=== PATIENT | male | born 1975 | race Caucasian/White ===

== ENCOUNTER 2021-03-22 21:23 | Emergency (ER) | payer BC ==
[~2021-03-22] VITALS: Ht 167.6 cm; Wt 141.1 kg
[2021-03-22] MEDS ORDERED: IBUPROFEN 800 MG TAB PO ONE (22:00)
[2021-03-22] MEDS ORDERED: ACETAMINOPHEN 500 MG TABLET PO ONE (22:00)
[2021-03-22] MEDS ORDERED: 0.9%NACL 1000ML 1,000 ML IV ONE (22:00)
[2021-03-22 22:21] LABS: BASOPHILS % (AUTO) 0.2 % (0.0-5.0); EOSINOPHILS % (AUTO) 1.5 % (0.0-8.0); HEMATOCRIT 41.4 % (42-54); LYMPHOCYTES % (AUTO) 10.3 % (21.0-51.0); MEAN CORPUSCULAR HEMOGLOBIN 31.3 pg (27.0-33.0); MEAN CORPUSCULAR VOLUME 89.2 fL (79-99); MONOCYTES % (AUTO) 9.9 % (3.0-13.0); NEUTROPHILS % (AUTO) 77.6 % (40.0-77.0); PLATELET COUNT (AUTO) 284 K/uL (130-400); RED BLOOD CELL COUNT(AUTO) 4.64 MIL/uL (4.50-6.20); RED CELL DISTRIBUTION WIDTH 12.2 % (11.0-15.5); WHITE BLOOD COUNT (AUTO) 17.6 K/uL (4.8-10.8)
[2021-03-22 22:23] LABS: APPEARANCE,URINE Cloudy (CLEAR); BILIRUBIN,URINE Negative (NEGATIVE); COLOR,URINE Dark Yellow (YELLOW); GLUCOSE, URINE (UA) Negative (NEGATIVE); KETONES,URINE Negative (NEGATIVE); LEUKOCYTE ESTERASE ,URINE Moderate (NEGATIVE); NITRATE,URINE Negative (NEGATIVE); OCCULT BLOOD,URINE Moderate (NEGATIVE); PH,URINE 5.5 (5.0-8.0); PROTEIN,URINE POS 1+ mg/dL (NEGATIVE)
[2021-03-22 22:35] LABS: POTASSIUM 3.1 mmol/L (3.5-5.1)
[2021-03-22 22:39] LABS: ALBUMIN 3.3 g/dL (3.5-5.0); BILIRUBIN,TOTAL 0.8 mg/dL (0.2-1.0); CRP QUANTITATIVE 47.8 mg/L (0.00-9.0); TOTAL PROTEIN, SERUM 7.5 g/dL (6.0-8.3)
[2021-03-22 22:45] LABS: BACTERIA,URINE Rare /HPF (None Seen); SQUAMOUS EPITHELIAL CELL,UR Few /HPF (0-2)
[2021-03-22] MEDS ORDERED: POTASSIUM BICARB/CIT AC 25 MEQ TABLET.EFF ONE (22:45)
[2021-03-22] MEDS ORDERED: CEFTRIAXONE 1G VIAL ONE (22:45)
[2021-03-22] MEDS ORDERED: POTASSIUM BICARB/CIT AC 25 MEQ TABLET.EFF PO ONE (23:00)
[2021-03-22] MEDS ORDERED: CEFTRIAXONE 1G VIAL IVP ONE (23:00)
[2021-03-22] MEDS ORDERED: CEPH500B PO (23:28)
[2021-03-22 23:55] VITALS: BP 119/82
== END 2021-03-22 23:58 | disposition home or self-care (01) ==
LOC: EDH 21:23
DX: N39.0 Urinary tract infection, site not specified (principal); E86.0 Dehydration; Z20.822 Contact with and (suspected) exposure to COVID-19; R73.9 Hyperglycemia, unspecified; E66.9 Obesity, unspecified; I10 Essential (primary) hypertension; Z79.1 Long term (current) use of non-steroidal anti-inflammatories (NSAID); Z68.43 Body mass index [BMI] 50.0-59.9, adult
CPT/HCPCS: 36415; 71045; 80053; 81001; 83605; 85025; 86140; 87040 ×2; 87077; 87088; 87186; 87635; 87804 ×2; 87880; 96374; 99284; C9803; J0696; J7030

== ENCOUNTER 2022-12-05 12:13 | Emergency (ER) | payer BC ==
[~2022-12-05] VITALS: Ht 167.6 cm; Wt 133.4 kg
[~2022-12-05 12:13] MED LIST: CEPH500B PO
[2022-12-05 12:15] VITALS: BP 132/84; PULSE 94; RESP 20
[2022-12-05 12:49] LABS: BASOPHILS # (AUTO) 0.06 K/uL (0.00-0.20); BASOPHILS % (AUTO) 0.4 % (0.0-5.0); EOSINOPHILS # (AUTO) 0.08 K/uL (0.00-0.70); EOSINOPHILS % (AUTO) 0.5 % (0.0-8.0); HEMATOCRIT 44.2 % (42-54); IMMATURE GRANULOCYTE ABSOLUTE 0.07 K/uL (0-1); LYMPHOCYTES # (AUTO) 1.8 K/uL (1.0-4.8); LYMPHOCYTES % (AUTO) 11.3 % (21.0-51.0); MEAN CORPUSCULAR HEMOGLOBIN 30.8 pg (27.0-33.0); MEAN CORPUSCULAR HGB CONC 34.8 g/dL (32.0-36.0); MEAN CORPUSCULAR VOLUME 88.4 fL (79-99); MONOCYTES # (AUTO) 1.5 K/uL (0.1-1.0); MONOCYTES % (AUTO) 9.7 % (3.0-13.0); NEUTROPHILS # (AUTO) 12.2 K/uL (1.8-7.7); NEUTROPHILS % (AUTO) 77.7 % (40.0-77.0); PLATELET COUNT (AUTO) 280 K/uL (130-400); RED CELL DISTRIBUTION WIDTH 12.3 % (11.0-15.5); WHITE BLOOD COUNT (AUTO) 15.7 K/uL (4.8-10.8)
[2022-12-05 12:50] LABS: APPEARANCE,URINE CLEAR (CLEAR); BILIRUBIN,URINE NEGATIVE (NEGATIVE); COLOR,URINE YELLOW (YELLOW); GLUCOSE, URINE (UA) NEGATIVE (NEGATIVE); KETONES,URINE NEGATIVE (NEGATIVE); LEUKOCYTE ESTERASE ,URINE NEGATIVE Leu/uL (NEGATIVE); NITRATE,URINE NEGATIVE (NEGATIVE); OCCULT BLOOD,URINE MODERATE (NEGATIVE); PH,URINE 6.5 (5.0-8.0); PROTEIN,URINE 50 mg/dL (NEGATIVE); UROBILINOGEN,URINE 0.2 mg/dL (0.2-1.0)
[2022-12-05 12:55] LABS: ADD UA MICROSCOPIC YES
[2022-12-05 13:06] LABS: MUCUS,URINE RARE LPF (None Seen); SQUAMOUS EPITHELIAL CELL,UR RARE /HPF (0-2); WBC,URINE 0-1 /HPF (0-1)
[2022-12-05 13:07] LABS: ALBUMIN 3.4 g/dL (3.5-5.0); BILIRUBIN,TOTAL 0.8 mg/dL (0.2-1.0); POTASSIUM 3.2 mmol/L (3.5-5.1); TOTAL PROTEIN, SERUM 8.2 g/dL (6.0-8.3)
[2022-12-05] MEDS ORDERED: IOHEXOL-350 75 ML VIAL IV ONE (13:55)
[2022-12-05] MEDS ORDERED: CEPH500B PO (15:28)
== END 2022-12-05 15:41 | disposition home or self-care (01) ==
LOC: EDH 12:13
DX: N45.1 Epididymitis (principal); N43.3 Hydrocele, unspecified; K42.9 Umbilical hernia without obstruction or gangrene; I10 Essential (primary) hypertension; E78.00 Pure hypercholesterolemia, unspecified; E11.9 Type 2 diabetes mellitus without complications
CPT/HCPCS: 99284; 74177; 80053; 85025; 81001; 36415; 76870; Q9967